=== PATIENT | female | born 1950 | race Two or more races ===

== ENCOUNTER 2019-12-31 11:00 | Outpatient (CLI) | payer MEDICARE | END 2019-12-31 23:59 | disposition home or self-care (01) | LOC: MSC 11:00 | PROVIDERS: ATTEND Internal Medicine | DX: I12.0 Hypertensive chronic kidney disease with stage 5 chronic kidney disease or end stage renal disease (principal); N18.6 End stage renal disease; Z94.0 Kidney transplant status; D63.1 Anemia in chronic kidney disease; K21.9 Gastro-esophageal reflux disease without esophagitis; B35.1 Tinea unguium; R60.9 Edema, unspecified; E78.5 Hyperlipidemia, unspecified; E03.9 Hypothyroidism, unspecified; K92.2 Gastrointestinal hemorrhage, unspecified; Z79.52 Long term (current) use of systemic steroids; Z79.899 Other long term (current) drug therapy ==

== ENCOUNTER 2020-03-03 11:13 | Outpatient (CLI) | payer MEDICARE | END 2020-03-03 23:59 | disposition home or self-care (01) | LOC: MSC 11:13 | PROVIDERS: ATTEND Internal Medicine | DX: I12.0 Hypertensive chronic kidney disease with stage 5 chronic kidney disease or end stage renal disease (principal); N18.6 End stage renal disease; D63.1 Anemia in chronic kidney disease; Z94.0 Kidney transplant status; B35.1 Tinea unguium; K21.9 Gastro-esophageal reflux disease without esophagitis; R60.9 Edema, unspecified; E78.5 Hyperlipidemia, unspecified; E03.9 Hypothyroidism, unspecified; K92.2 Gastrointestinal hemorrhage, unspecified; Z79.82 Long term (current) use of aspirin; Z79.52 Long term (current) use of systemic steroids; Z79.899 Other long term (current) drug therapy ==

== ENCOUNTER 2020-03-31 08:40 | Outpatient (CLI) | payer MEDICARE ==
[2020-03-31 22:46] LABS: THYROID STIMULATING HORMONE 0.906 uIU/mL (0.358-3.74)
== END 2020-03-31 23:59 | disposition home or self-care (01) ==
LOC: MSC 08:40
PROVIDERS: ATTEND Internal Medicine
DX: J02.9 Acute pharyngitis, unspecified (principal); Z87.448 Personal history of other diseases of urinary system; Z94.0 Kidney transplant status; B35.1 Tinea unguium; I10 Essential (primary) hypertension; R60.9 Edema, unspecified; K21.9 Gastro-esophageal reflux disease without esophagitis; E78.5 Hyperlipidemia, unspecified; E03.9 Hypothyroidism, unspecified; K92.2 Gastrointestinal hemorrhage, unspecified; Z79.52 Long term (current) use of systemic steroids; Z79.82 Long term (current) use of aspirin; Z79.899 Other long term (current) drug therapy
CPT/HCPCS: 36415; 80061; 84443; G0463

== ENCOUNTER 2020-06-09 10:46 | Outpatient (CLI) | payer MEDICARE, MEDICAID | END 2020-06-09 23:59 | disposition home or self-care (01) | LOC: MSC 10:46 | PROVIDERS: ATTEND Internal Medicine | DX: R10.9 Unspecified abdominal pain (principal); D75.1 Secondary polycythemia; I12.0 Hypertensive chronic kidney disease with stage 5 chronic kidney disease or end stage renal disease; N18.6 End stage renal disease; Z94.0 Kidney transplant status; K21.9 Gastro-esophageal reflux disease without esophagitis; D63.1 Anemia in chronic kidney disease; B35.1 Tinea unguium; R60.9 Edema, unspecified; E78.5 Hyperlipidemia, unspecified; E03.9 Hypothyroidism, unspecified; K92.2 Gastrointestinal hemorrhage, unspecified; Z79.52 Long term (current) use of systemic steroids; Z79.82 Long term (current) use of aspirin; Z79.899 Other long term (current) drug therapy ==

== ENCOUNTER 2020-07-14 10:38 | Outpatient (CLI) | payer MEDICARE, MEDICAID | END 2020-07-14 23:59 | disposition home or self-care (01) | LOC: MSC 10:38 | PROVIDERS: ATTEND Internal Medicine | DX: Z09 Encounter for follow-up examination after completed treatment for conditions other than malignant neoplasm (principal); I12.0 Hypertensive chronic kidney disease with stage 5 chronic kidney disease or end stage renal disease; N18.6 End stage renal disease; D63.1 Anemia in chronic kidney disease; Z94.0 Kidney transplant status; R10.9 Unspecified abdominal pain; K21.9 Gastro-esophageal reflux disease without esophagitis; D75.1 Secondary polycythemia; B35.1 Tinea unguium; R60.9 Edema, unspecified; E78.5 Hyperlipidemia, unspecified; E03.9 Hypothyroidism, unspecified; K92.2 Gastrointestinal hemorrhage, unspecified; Z79.82 Long term (current) use of aspirin; Z79.52 Long term (current) use of systemic steroids; Z79.899 Other long term (current) drug therapy ==

== ENCOUNTER 2020-09-07 10:52 | Outpatient (CLI) | payer MEDICARE, MEDICAID | END 2020-09-07 23:59 | disposition home or self-care (01) | LOC: MSC 10:52 | PROVIDERS: ATTEND Internal Medicine | DX: R01.1 Cardiac murmur, unspecified (principal); D75.1 Secondary polycythemia; I12.0 Hypertensive chronic kidney disease with stage 5 chronic kidney disease or end stage renal disease; N18.6 End stage renal disease; Z94.0 Kidney transplant status; E78.5 Hyperlipidemia, unspecified; R10.9 Unspecified abdominal pain; K21.9 Gastro-esophageal reflux disease without esophagitis; D63.1 Anemia in chronic kidney disease; B35.1 Tinea unguium; R60.9 Edema, unspecified; E03.9 Hypothyroidism, unspecified; K92.2 Gastrointestinal hemorrhage, unspecified; Z79.52 Long term (current) use of systemic steroids; Z79.899 Other long term (current) drug therapy ==

== ENCOUNTER → 2020-10-19 | Outpatient (CLI) | payer MEDICARE, OTHER | END | disposition home or self-care (01) | LOC: MSC 11:00 | PROVIDERS: ATTEND Internal Medicine | DX: J04.0 Acute laryngitis (principal); R01.1 Cardiac murmur, unspecified; I13.11 Hypertensive heart and chronic kidney disease without heart failure, with stage 5 chronic kidney disease, or end stage renal disease; N18.6 End stage renal disease; Z94.0 Kidney transplant status; D75.1 Secondary polycythemia; R10.9 Unspecified abdominal pain; K21.9 Gastro-esophageal reflux disease without esophagitis; D63.1 Anemia in chronic kidney disease; K92.2 Gastrointestinal hemorrhage, unspecified; B35.1 Tinea unguium; R60.9 Edema, unspecified; E78.5 Hyperlipidemia, unspecified; E03.9 Hypothyroidism, unspecified; Z79.890 Hormone replacement therapy; Z79.52 Long term (current) use of systemic steroids; Z79.899 Other long term (current) drug therapy ==

== ENCOUNTER 2020-12-07 11:12 | Outpatient (CLI) | payer MEDICARE, OTHER | END 2020-12-07 23:59 | disposition home or self-care (01) | LOC: MSC 11:12 | PROVIDERS: ATTEND Internal Medicine | DX: J04.0 Acute laryngitis (principal); J00 Acute nasopharyngitis [common cold]; R01.1 Cardiac murmur, unspecified; I12.0 Hypertensive chronic kidney disease with stage 5 chronic kidney disease or end stage renal disease; N18.6 End stage renal disease; Z94.0 Kidney transplant status; D75.1 Secondary polycythemia; R10.9 Unspecified abdominal pain; K21.9 Gastro-esophageal reflux disease without esophagitis; D63.1 Anemia in chronic kidney disease; B35.1 Tinea unguium; R60.9 Edema, unspecified; E78.5 Hyperlipidemia, unspecified; E03.9 Hypothyroidism, unspecified; Z79.890 Hormone replacement therapy; K92.2 Gastrointestinal hemorrhage, unspecified; Z79.899 Other long term (current) drug therapy | CPT/HCPCS: 71045; G0463; 36415 ==

== ENCOUNTER → 2020-12-10 | Outpatient (CLI) | payer MEDICARE, OTHER | END | disposition home or self-care (01) | LOC: MSC 15:00 | PROVIDERS: ATTEND Internal Medicine | DX: J04.0 Acute laryngitis (principal); J00 Acute nasopharyngitis [common cold]; R01.1 Cardiac murmur, unspecified; I12.0 Hypertensive chronic kidney disease with stage 5 chronic kidney disease or end stage renal disease; N18.6 End stage renal disease; Z94.0 Kidney transplant status; R10.9 Unspecified abdominal pain; K21.9 Gastro-esophageal reflux disease without esophagitis; D63.1 Anemia in chronic kidney disease; B35.1 Tinea unguium; E78.5 Hyperlipidemia, unspecified; E03.9 Hypothyroidism, unspecified; Z79.890 Hormone replacement therapy; K92.2 Gastrointestinal hemorrhage, unspecified; Z79.52 Long term (current) use of systemic steroids; Z79.82 Long term (current) use of aspirin; Z79.899 Other long term (current) drug therapy ==

== ENCOUNTER 2021-02-22 10:53 | Outpatient (CLI) | payer MEDICARE, OTHER | END 2021-02-22 23:59 | disposition home or self-care (01) | LOC: MSC 10:53 | PROVIDERS: ATTEND Internal Medicine | DX: H93.11 Tinnitus, right ear (principal); J00 Acute nasopharyngitis [common cold]; R01.1 Cardiac murmur, unspecified; I12.0 Hypertensive chronic kidney disease with stage 5 chronic kidney disease or end stage renal disease; N18.6 End stage renal disease; Z94.0 Kidney transplant status; D75.1 Secondary polycythemia; R10.9 Unspecified abdominal pain; K21.9 Gastro-esophageal reflux disease without esophagitis; D63.1 Anemia in chronic kidney disease; B35.1 Tinea unguium; E78.5 Hyperlipidemia, unspecified; E03.9 Hypothyroidism, unspecified; Z79.890 Hormone replacement therapy; K92.2 Gastrointestinal hemorrhage, unspecified; Z79.52 Long term (current) use of systemic steroids; Z79.82 Long term (current) use of aspirin; Z79.899 Other long term (current) drug therapy ==

== ENCOUNTER → 2021-03-01 | Outpatient (CLI) | payer MEDICARE, OTHER | END | disposition home or self-care (01) | LOC: MSC 10:45 | PROVIDERS: ATTEND Internal Medicine | DX: R19.7 Diarrhea, unspecified (principal); J04.0 Acute laryngitis; J30.9 Allergic rhinitis, unspecified; H93.11 Tinnitus, right ear; R01.1 Cardiac murmur, unspecified; I12.0 Hypertensive chronic kidney disease with stage 5 chronic kidney disease or end stage renal disease; N18.6 End stage renal disease; Z94.0 Kidney transplant status; D63.1 Anemia in chronic kidney disease; D75.1 Secondary polycythemia; R10.9 Unspecified abdominal pain; K21.9 Gastro-esophageal reflux disease without esophagitis; B35.1 Tinea unguium; E78.5 Hyperlipidemia, unspecified; E03.9 Hypothyroidism, unspecified; Z79.890 Hormone replacement therapy; K92.2 Gastrointestinal hemorrhage, unspecified; Z79.52 Long term (current) use of systemic steroids; Z79.82 Long term (current) use of aspirin; Z79.899 Other long term (current) drug therapy ==